=== PATIENT | female | born 2000 | race Two or more races ===

== ENCOUNTER 2024-11-25 13:10 | Outpatient (CLI) | payer OTHER | END 2024-11-25 13:16 | disposition home or self-care (01) | LOC: PRENATAL 13:10 | DX: O44.00 Complete placenta previa NOS or without hemorrhage, unspecified trimester (principal); Z3A.23 23 weeks gestation of pregnancy ==

== ENCOUNTER 2024-12-30 10:13 | Outpatient (CLI) | payer OTHER | END 2024-12-30 10:14 | disposition home or self-care (01) | LOC: PRENATAL 10:13 | PROVIDERS: ATTEND Obstetrics & Gynecology Maternal & Fetal Medicine | DX: O26.849 Uterine size-date discrepancy, unspecified trimester (principal); O43.90 Unspecified placental disorder, unspecified trimester; O24.419 Gestational diabetes mellitus in pregnancy, unspecified control; Z3A.29 29 weeks gestation of pregnancy ==

== ENCOUNTER → 2025-02-12 13:38 | Outpatient (CLI) | payer OTHER | END | disposition home or self-care (01) | LOC: PRENATAL 13:38 | PROVIDERS: ATTEND Obstetrics & Gynecology Maternal & Fetal Medicine | DX: O26.849 Uterine size-date discrepancy, unspecified trimester (principal); O36.8130 Decreased fetal movements, third trimester, not applicable or unspecified; O43.90 Unspecified placental disorder, unspecified trimester; Z3A.35 35 weeks gestation of pregnancy ==